=== PATIENT | female | born 1995 | race Caucasian/White ===

== ENCOUNTER 2019-03-21 17:04 | Emergency (ER) | payer BC ==
[2019-03-21 18:34] LABS: ABS Eosinophils 0.1 10^3/ul (0-0.6); ABS Lymphocytes 1.3 10^3/ul (1.0-4.8); ABS Monocytes 0.5 10^3/ul (0-0.8); Eosinophil % 0.7 %; Hematocrit 44 % (35-47); Hemoglobin 15.1 g/dL (12.0-16.0); Lymphocyte % 12.7 %; Mean Corpuscular HGB Conc 35 g/dL (31-36); Mean Corpuscular Hemoglobin 30 pg (27-31); Mean Corpuscular Volume 88 fL (80-97); Mean Platelet Volume 8.8 fL (7.4-10.4); Nucleated Red Blood Cells % 0.1; Platelet Count 282 10^3/uL (150-450); Red Blood Count 4.97 10^6 /uL (3.70-4.87); Red Cell Distribution Width 13 % (10-15)
[2019-03-21 18:59] LABS: ALT 21 U/L (7-52); AST 22 U/L (13-39); Albumin/Globulin Ratio 1.9 (1-3); Alkaline Phosphatase 65 U/L (34-104); Amylase 30 U/L (29-103); Anion Gap 6 mmol/L (2-11); BUN/Creatinine Ratio 11.5 (8-20); Blood Urea Nitrogen 9 mg/dL (6-24); C Reactive Protein < 1.00 mg/L (<8.01); CO2 Carbon Dioxide 27 mmol/L (22-32); Calcium 9.6 mg/dL (8.6-10.3); Chloride 104 mmol/L (101-111); EGFR African American 110.7 (>60); EGFR Non-African American 91.5 (>60); Globulin 2.7 g/dL (2-4); Glucose 127 mg/dL (70-100); Potassium 3.9 mmol/L (3.5-5.0); Sodium 137 mmol/L (135-145); Total Protein 7.7 g/dL (6.4-8.9)
[2019-03-21 19:01] LABS: HCG Pregnancy < 0.60 mIU/mL
--- NOTE | 2019-03-21 19:06 | ED ---
GI/ HPI - HPI Summary HPI Summary: 23 year old female presents with abdominal pain today. She states the pain has been intermittently for the past year. States pain has never been this intense. States pain was in the epigastric region. She states that it was very sharp but has dissipated since. She denies any nausea or vomiting. She initially thought it was constipation. She states she had a bowel movement today which does not change her pain. She states she bought miralax but did not start such. she denies any blood in her stool or dark tarry stool. She denies any abnormal vaginal discharge. LMP was 2 days ago. She denies any chest pain shortness breath. No cough. she has no conditions. - History of Current Complaint Chief Complaint: EDAbdPain Time Seen by Provider: 03/21/19 18:52 Stated Complaint: ABD PAIN PER PT Pain Intensity: 3 - Allergy/Home Medications Allergies/Adverse Reactions: Allergies Allergy/AdvReac Type Severity Reaction Status Date / Time No Known Allergies Allergy Verified 03/21/19 17:27 Home Medications: Home Medications NK [No Home Medications Reported] 03/21/19 [History Confirmed 03/21/19] PMH/Surg Hx/FS Hx/Imm Hx Endocrine/Hematology History: Denies: Hx Anticoagulant Therapy Respiratory History: Denies: Hx Asthma Infectious Disease History: No Infectious Disease History: Denies: Traveled Outside the [place] in Last 30 Days - Social History Substance Use Type: Reports: None Smoking Status (MU): Unknown if Ever Smoked Review of Systems Negative: Fever Negative: Chest Pain Negative: Shortness Of Breath Positive: Abdominal Pain. Negative: Vomiting, Diarrhea, Nausea All Other Systems Reviewed And Are Negative: Yes Physical Exam Triage Information Reviewed: Yes Vital Signs On Initial Exam: Initial Vitals Temp Pulse Resp BP Pulse Ox 98.2 F 87 16 143/93 100 03/21/19 17:25 03/21/19 17:25 03/21/19 17:25 03/21/19 17:25 03/21/19 17:25 Vital Signs Reviewed: Yes Appearance: Positive: Well-Appearing Skin: Positive: Warm, Dry Head/Face: Positive: Normal Head/Face Inspection Eyes: Positive: Normal, Conjunctiva Clear ENT: Positive: Pharynx normal Respiratory/Lung Sounds: Positive: Clear to Auscultation, Breath Sounds Present Cardiovascular: Positive: Normal, RRR Abdomen Description: Positive: Soft, Other: - tenderness epigastric Bowel Sounds: Positive: Present Musculoskeletal: Positive: Normal Neurological: Positive: Normal Psychiatric: Positive: Normal Procedures - Sedation Patient Received Moderate/Deep Sedation with Procedure: No Diagnostics - Vital Signs Vital Signs Temp Pulse Resp BP Pulse Ox 03/21/19 17:25 98.2 F 87 16 143/93 100 - Laboratory Lab Results: Lab Results 03/21/19 03/21/19 Range/Units 18:15 18:15 WBC 10.0 (3.5-10.8) 10^3/uL RBC 4.97 H (3.70-4.87) 10^6 /uL Hgb 15.1 (12.0-16.0) g/dL Hct 44 (35-47) % MCV 88 (80-97) fL MCH 30 (27-31) pg MCHC 35 (31-36) g/dL RDW 13 (10-15) % Plt Count 282 (150-450) 10^3/uL MPV 8.8 (7.4-10.4) fL Neut % (Auto) 80.8 % Lymph % (Auto) 12.7 % Angelina % (Auto) 5.4 % Eos % (Auto) 0.7 % Baso % (Auto) 0.4 % Absolute Neuts (auto) 8.0 H (1.5-7.7) 10^3/ul Absolute Lymphs (auto) 1.3 (1.0-4.8) 10^3/ul Absolute Monos (auto) 0.5 (0-0.8) 10^3/ul Absolute Eos (auto) 0.1 (0-0.6) 10^3/ul Absolute Basos (auto) 0.0 (0-0.2) 10^3/ul Absolute Nucleated RBC 0.0 10^3/ul Nucleated RBC % 0.1 Sodium 137 (135-145) mmol/L Potassium 3.9 (3.5-5.0) mmol/L Chloride 104 (101-111) mmol/L Carbon Dioxide 27 (22-32) mmol/L Anion Gap 6 (2-11) mmol/L BUN 9 (6-24) mg/dL Creatinine 0.78 (0.51-0.95) mg/dL Est GFR ( Amer) 110.7 (>60) Est GFR (Non-Af Amer) 91.5 (>60) BUN/Creatinine Ratio 11.5 (8-20) Glucose 127 H (70-100) mg/dL Calcium 9.6 (8.6-10.3) mg/dL Total Bilirubin 1.10 H (0.2-1.0) mg/dL AST 22 (13-39) U/L ALT 21 (7-52) U/L Alkaline Phosphatase 65 (34-104) U/L C-Reactive Protein < 1.00 (<8.01) mg/L Total Protein 7.7 (6.4-8.9) g/dL Albumin 5.0 (3.2-5.2) g/dL Globulin 2.7 (2-4) g/dL Albumin/Globulin Ratio 1.9 (1-3) Amylase 30 (29-103) U/L Lipase 22 (11.0-82.0) U/L Beta HCG, Quant < 0.60 mIU/mL Result Diagrams: 03/21/19 18:15 03/21/19 18:15 Lab Statement: Any lab studies that have been ordered have been reviewed, and results considered in the medical decision making process. - Ultrasound No standard instances Ultrasound Interpretation Completed By: Radiologist Summary of Ultrasound Findings: IMPRESSION: 1. Cholelithiasis with no gallbladder wall thickening and a negative sono Chiu's sign. 2. Otherwise negative right upper quadrant sonogram. Re-Evaluation - Re-Evaluation First Eval Re-Evaluation Time: 21:06 Comment: given GI cocktail with minimial relief, feeling better GIGU Course/Dx - Course Course Of Treatment: 23 year old female presents with abdominal pain today. She states the pain has been intermittently for the past year. States pain has never been this intense. States pain was in the epigastric region. She states that it was very sharp but has dissipated since. She denies any nausea or vomiting. She initially thought it was constipation. She states she had a bowel movement today which does not change her pain. She states she bought miralax but did not start such. she denies any blood in her stool or dark tarry stool. She denies any abnormal vaginal discharge. LMP was 2 days ago. She denies any chest pain shortness breath. No cough. she has no conditions. On exam mild tenderness epigastric region. wbc normal. CRP normal. lfts normal. Gallbladder ultrasound shows cholethliathsis. will give referral to surgery. patient understand and agrees with plan. - Diagnoses Differential Diagnoses - Female: Gall Bladder Disease, Gastritis, Gastroenteritis (Viral) Provider Diagnoses: Cholelithiasis Discharge ED - Sign-Out/Discharge Documenting (check all that apply): Patient Departure - Discharge Plan Condition: Good Disposition: HOME Patient Education Materials: Gallstones (ED) Referrals: [facility] [place] [facility] [Outside] Joce Pabon MD [Medical Doctor] - Additional Instructions: take tyenlol or ibuprofen every 6 hours as needed for pain follow up with surgery Establish care with primary Return to ED if develop any new or worsening symptoms - Billing Disposition and Condition Condition: GOOD Disposition: Home - Attestation Statements Provider Attestation: I was available for consult. This patient was seen by the DAIN. The patient was not presented to, seen by, or examined by me. Venkat Greenberg MD
[2019-03-21] MEDS ORDERED: Ketorolac INJ* 30 MG/ML 1 ML VIAL IM ONE (20:16)
[2019-03-21] MEDS ORDERED: Al Hydrox/Mg Hydrox/Simet LIQ* 30 ML UDC PO ONE (20:54)
[2019-03-21] MEDS ORDERED: Lidocaine 2% VISCOUS* 15 ML UDC PO ONE (20:54)
[2019-03-21 21:04] VITALS: BP 116/73
== END 2019-03-21 21:27 | disposition home or self-care (01) ==
LOC: ED 17:04
DX: K80.20 Calculus of gallbladder without cholecystitis without obstruction (principal)
CPT/HCPCS: 36415; 76705; 80053; 82150; 83690; 84702; 85025; 86140; 96372; 99282; A9270-GY; J1885